=== PATIENT | female | born 1960 | race Hispanic/Latino ===

== ENCOUNTER 2017-10-21 13:12 | Outpatient (CLI) | payer BC | END 2017-10-21 13:13 | disposition home or self-care (01) | LOC: BICMAMMO 13:12 | PROVIDERS: ATTEND Family Medicine | DX: Z12.31 Encounter for screening mammogram for malignant neoplasm of breast (principal) | CPT/HCPCS: 77063; 77067 ==

== ENCOUNTER 2018-01-18 07:42 | Outpatient (CLI) | payer BC | END 2018-01-18 07:43 | disposition home or self-care (01) | LOC: BICULT 07:42 | PROVIDERS: ATTEND Family Medicine | DX: R10.84 Generalized abdominal pain (principal) | CPT/HCPCS: 76700 ==

== ENCOUNTER 2019-01-05 07:47 | Outpatient (CLI) | payer BC ==
--- NOTE | 2019-01-05 09:14 | ULT ---
ABDOMINAL ULTRASOUND COMPLETE: Date: 01/05/19 HISTORY: Abdominal pain. COMPARISON: 01/18/18. FINDINGS: Heterogeneous increased liver echogenicity, evidence for fatty change, with some associated focal fat ty sparing next to the gallbladder. Gallbladder demonstrates no evidence of gallstones, wall thickeni ng, edema, or pericholecystic fluid. Common bile duct within normal limits at 0.6 cm. No focal liver masses. Visualized pancreas, IVC, aorta, and spleen are unremarkable. The kidneys show no hydronephro sis. No abscess or abnormal fluid collection. IMPRESSION: Heterogeneous increased liver echogenicity, evidence for fatty change, with some associated very fatt y sparing, stable from prior study. POS: OFF
--- NOTE | 2019-01-05 09:27 | MMO ---
Bilateral MAMMO Bilat Diag [facility]. CLINICAL HISTORY: Patient is 58 years old and is seen for diagnostic exam and lump or thickening in the left breast. The patient has no family history of breast cancer. The patient has no personal history of cancer. The patient has a history of left Excisional Biopsy in 1994 - BENIGN and right Cyst Aspiration in 2000 - Benign. VIEWS: The views performed were: bilateral craniocaudal with tomosynthesis; bilateral mediolateral oblique with tomosynthesis; and bilateral mediolateral with tomosynthesis. FILMS COMPARED: The present examination has been compared to prior imaging studies performed at [facility] on 03/16/2013, 10/29/2015, 10/21/2017 and 01/05/2019. MAMMOGRAM FINDINGS: There are scattered fibroglandular densities. Finding 1: There are stable benign appearing calcifications seen in both breasts. Finding 2: There are multiple stable masses of varying size with microlobulated margins seen in the upper-outer region of the left breast. IMPRESSION: FINDING 1: STABLE CALCIFICATIONS IN BOTH BREASTS ARE BENIGN. FINDING 2: STABLE MASSES IN THE LEFT BREAST ARE PROBABLY BENIGN. FOLLOW-UP IN 6 MONTHS IS RECOMMENDED. SOLID AND CYSTIC MASSES. THE RESULTS OF THIS EXAM WERE SENT TO THE PATIENT. ACR BI-RADS Category 3 - Probably benign finding - short interval follow-up suggested. [facility] will notify the patient of the need for additional imaging services. MAMMOGRAPHY NOTE: 1. A negative mammogram report should not delay a biopsy if a dominant of clinically suspicious mass is present. 2. Approximately 10% to 15% of breast cancers are not detected by mammography. 3. Adenosis and dense breasts may obscure an underlying neoplasm. Reported by: JOE RICHTER MD Electonically Signed: [id number]
--- NOTE | 2019-01-05 11:45 | ULT ---
LEFT BREAST ULTRASOUND: HISTORY: The patient presents with a palpable finding in the left breast which has since resolved with no spec [facility] palpable finding at this time. COMPARISON: Bilateral diagnostic mammogram 01/05/2019. FINDINGS: At 3 o'clock, 2 cm from the nipple, there is a 0.9 x 1.1 x 0.9 cm diameter slightly hypoechoic slight ly microlobulated-appearing solid mass. In fairly close proximity to this mass there is a 2nd smalle r mass with microlobulated margins and slightly hypoechoic features the same as the above-mentioned m ass. This mass measures approximately 0.5 x 0.9 cm. In addition, there are 2 smaller circumscribed more hypoechoic masses noted at 3 o'clock, one measuring 0.4 cm x 0.5 cm, the second one measures mami roximately 0.5 x 0.7 cm. In the 12 o'clock position 4 cm from the nipple, there is a somewhat lobula elliott-appearing cyst which measures 0.7 x 1.1 x 0.4 cm in size. At 2 o'clock 4 cm from the nipple, the re is a circumscribed hypoechoic mass measuring 0.5 x 0.7 x 1.0 cm. At 11 o'clock 1 cm from the nipp le, there is a slightly septated cyst measuring 0.6 x 1.0 x 1.2 cm. Prior mammography indicated multiple overall stable-appearing nodules since least 2015. IMPRESSION: 1. Multiple solid and cystic nodules of varying size and varying echogenicity, the largest of which approximates 0.9 x 0.9 x 1.1 cm. This is at 3 o'clock 2 cm from the nipple. I favor these findings to be that of multiple degenerating fibroadenomas as well as multiple left breast cysts. 2. BIRADS category 3, probably benign findings. Followup left breast ultrasound and left breast luis gnostic mammogram in 6 months is recommended for further assessment with particular attenuation to th e largest finding in the left breast at 3 o'clock 2 cm from the nipple. Findings were discussed with the patient who is in agreement with proceeding to 6-month short-term owen rveillance. CODE T POS: OFF
== END 2019-01-05 07:48 | disposition home or self-care (01) ==
LOC: BICULT 07:47
PROVIDERS: ATTEND Family Medicine
DX: R10.84 Generalized abdominal pain (principal); N63.20 Unspecified lump in the left breast, unspecified quadrant; N63.21 Unspecified lump in the left breast, upper outer quadrant; K76.89 Other specified diseases of liver
CPT/HCPCS: 76700; 77066; G0279

== ENCOUNTER 2019-01-31 04:08 | Emergency (ER) | payer BC ==
[2019-01-31] MEDS ORDERED: hydrALAZINE 20 MG/ML VIAL ONE (04:20)
[2019-01-31] MEDS ORDERED: Ondansetron PF 4 MG/2 ML Vial ONE (04:25)
[2019-01-31 04:34] LABS: #Basophils 0.1 thou/uL (0.0-0.2); #Eosinphils 0.3 thou/uL (0.0-0.7); #Lymphocytes 3.2 thou/uL (1.20-3.40); #Monocytes 0.7 thou/uL (0.11-0.59); #Neutrophils 5.5 thou/uL (1.40-6.50); %Basophils 0.6 % (0.0-1.0); %Eosinophils 2.9 % (0.0-10.0); %Lymphocytes 32.9 % (21.0-51.0); %Monocytes 7.1 % (0.0-10.0); %Neutrophils 56.6 % (42.0-75.0); Mean Corpuscular HGB CONC 34.3 g/dL (32.0-36.0); Mean Corpuscular Hemoglobin 29.2 pg (27.0-31.0); Mean Platelet Volume 7.7 fL (7.4-10.4); Platelet Count 231 thou/uL (130-400); RBC Distribution Width 12.4 % (11.5-14.5); Red Blood Cell (RBC) Count 5.14 mill/uL (4.20-5.40); White Blood Cell (WBC) Count 9.6 thou/uL (4.8-10.8)
[2019-01-31 04:58] LABS: ALT (SGPT) 76 U/L (8-55); AST (SGOT) 60 U/L (5-34); Albumin 4.4 g/dL (3.5-5.0); Alkaline Phosphatase 149 U/L (40-150); Anion Gap 14 mmol/L (10-20); BUN (Urea Nitrogen) 9 mg/dL (9.8-20.1); Bilirubin, Total 1.3 mg/dL (0.2-1.2); Calc. Creatinine Clearance 0 mL/min (70-130); Calcium 10.1 mg/dL (7.8-10.44); Carbon Dioxide 26 mmol/L (22-29); Chloride 99 mmol/L (98-107); Estimated GFR-MDRD 74; Globulin 3.7 g/dL (2.4-3.5); Glucose 228 mg/dL (70-105); Potassium 3.5 mmol/L (3.5-5.1); Protein, Total 8.1 g/dL (6.0-8.3); Sodium 135 mmol/L (136-145)
== END 2019-01-31 05:31 | disposition home or self-care (01) ==
LOC: ERS 04:08
DX: R11.2 Nausea with vomiting, unspecified (principal); I10 Essential (primary) hypertension; F17.210 Nicotine dependence, cigarettes, uncomplicated; Z79.899 Other long term (current) drug therapy
CPT/HCPCS: 80053; 84484; 85025; 93005; 96374; 96375; J0360; J2405

== ENCOUNTER 2019-08-16 09:13 | Outpatient (CLI) | payer BC ==
--- NOTE | 2019-08-16 10:36 | MMO ---
Left Breast MAMMO Unilat Diag [facility]. CLINICAL HISTORY: Patient is 59 years old and is seen for diagnostic exam. The patient has a history of left Excisional Biopsy in 1994 - BENIGN and right Cyst Aspiration in 2000 - Benign. VIEWS: The views performed were: . FILMS COMPARED: The present examination has been compared to prior imaging studies performed at [facility] on 10/21/2017, 01/05/2019 and 08/16/2019. This study has been interpreted with the assistance of computer-aided detection. MAMMOGRAM FINDINGS: The breast is heterogeneously dense, which could obscure a lesion on mammography. There are multiple stable masses seen in the left breast. There are no suspicious masses, suspicious calcifications, or new areas of architectural distortion. IMPRESSION: THERE IS NO MAMMOGRAPHIC EVIDENCE OF MALIGNANCY. A ROUTINE FOLLOW-UP MAMMOGRAM IN 1 YEAR IS RECOMMENDED. THE RESULTS OF THIS EXAM WERE SENT TO THE PATIENT. ACR BI-RADS Category 2 - Benign finding MAMMOGRAPHY NOTE: 1. A negative mammogram report should not delay a biopsy if a dominant of clinically suspicious mass is present. 2. Approximately 10% to 15% of breast cancers are not detected by mammography. 3. Adenosis and dense breasts may obscure an underlying neoplasm. Reported by: LEILANI ARCE MD Electonically Signed: [id number]
--- NOTE | 2019-08-16 11:06 | ULT ---
LEFT BREAST ULTRASOUND: HISTORY: Followup of masses within the left breast. COMPARISON: Previous ultrasound of 01/05/2019, mammogram study of 08/16/2019 and 01/05/2019. FINDINGS: Multiple masses are again demonstrated within the left breast, the largest of which is in the 9-10 mm range which is a solid lesion at the 3 o'clock position 2 cm from the nipple. Other lesions are com plex cystic. These appear stable as compared to the prior exam. IMPRESSION: BIRADS category 2 - benign findings. POS: OFF
== END 2019-08-16 09:14 | disposition home or self-care (01) ==
LOC: BICMAMMO 09:13
PROVIDERS: ATTEND Family Medicine
DX: N63.20 Unspecified lump in the left breast, unspecified quadrant (principal)
CPT/HCPCS: G0279

== ENCOUNTER 2019-08-21 10:51 | Outpatient (CLI) | payer BC ==
--- NOTE | 2019-08-21 11:43 | ULT ---
RIGHT UPPER QUADRANT ULTRASOUND: Date: 08/21/2019 HISTORY: Right upper quadrant pain, abnormal labs. FINDINGS: The liver demonstrates increased echogenicity consistent with fatty infiltration. No focal mass or in trahepatic ductal dilatation is seen. The gallstones, gallbladder wall thickening, or pericholecystic fluid is seen. The pancreas and right kidney are normal. No free fluid is noted in Morison's pouch. The common duct measures 5.0 mm in diameter. IMPRESSION: 1. Fatty liver. 2. No evidence of cholelithiasis. POS: TPC
== END 2019-08-21 10:52 | disposition home or self-care (01) ==
LOC: BICULT 10:51
PROVIDERS: ATTEND Physician Assistant Medical
DX: Z12.11 Encounter for screening for malignant neoplasm of colon (principal); K21.9 Gastro-esophageal reflux disease without esophagitis; R10.11 Right upper quadrant pain; R94.5 Abnormal results of liver function studies; K76.0 Fatty (change of) liver, not elsewhere classified
CPT/HCPCS: 76705

== ENCOUNTER 2019-10-25 07:28 | Outpatient (CLI) | payer BC ==
--- NOTE | 2019-10-25 10:30 | NM ---
Exam: Nuclear medicine HIDA scan HISTORY: Right upper quadrant pain. TECHNIQUE: Patient is administered 4.9 mCi of technetium 99m mebrofenin intravenously. Gallbladder ej ection fraction is determined after the patient was administered 8 out of Ensure 1 hour after radiopharmaceutical injection FINDINGS: Appropriate uptake of the radiotracer by the liver. Excretion into the intrahepatic biliary system. Passage of radiotracer from the common bile duct into multiple small bowel loops. There is localization of the radiotracer in the gallbladder. Gallbladder ejection fraction: 61% IMPRESSION: 1. No scintigraphic evidence of acute cholecystitis 2. 61% gallbladder ejection fraction
== END 2019-10-25 07:29 | disposition home or self-care (01) ==
LOC: NM 07:28
PROVIDERS: ATTEND Internal Medicine Gastroenterology
DX: R10.11 Right upper quadrant pain (principal)
CPT/HCPCS: 78227; A9537

== ENCOUNTER 2020-07-30 08:51 | Outpatient (CLI) | payer BC ==
[2020-07-30] MEDS ORDERED: Iopamidol 370 76% 100 ML VIAL ONE (14:17)
== END 2020-07-30 08:52 | disposition home or self-care (01) ==
LOC: CT 08:51
PROVIDERS: ATTEND Internal Medicine Gastroenterology
DX: N93.9 Abnormal uterine and vaginal bleeding, unspecified (principal); D72.829 Elevated white blood cell count, unspecified; K92.1 Melena; K76.0 Fatty (change of) liver, not elsewhere classified
CPT/HCPCS: 74177; Q9967

== ENCOUNTER 2020-11-06 14:37 | Outpatient (CLI) | payer BC | END 2020-11-06 14:38 | disposition home or self-care (01) | LOC: BICRAD 14:37 | PROVIDERS: ATTEND Family Medicine | DX: J20.9 Acute bronchitis, unspecified (principal) | CPT/HCPCS: 71046 ==

== ENCOUNTER 2021-05-12 12:48 | Outpatient (CLI) | payer BC | END 2021-05-12 12:49 | disposition home or self-care (01) | LOC: BICMAMMO 12:48 | PROVIDERS: ATTEND Family Medicine | DX: Z12.31 Encounter for screening mammogram for malignant neoplasm of breast (principal); Z91.89 Other specified personal risk factors, not elsewhere classified | CPT/HCPCS: 77063; 77067 ==

== ENCOUNTER 2022-07-05 13:57 | Outpatient (CLI) | payer BC ==
[2022-07-05 14:59] LABS: #Basophils 0.1 10x3/uL (0.0-0.2); #Eosinphils 0.2 10x3/uL (0.0-0.5); #Monocytes 0.6 10x3/uL (0.0-1.1); #Neutrophils 9.1 10x3/uL (1.5-8.4); %Basophils 0.4 % (0.0-2.0); %Eosinophils 1.7 % (0.0-6.0); %Lymphocytes 19.6 % (18.0-47.0); %Monocytes 4.9 % (0.0-10.0); %Neutrophils 72.6 % (40.0-75.0); Hemoglobin 13.5 g/dL (12.0-15.5); Mean Corpuscular HGB CONC 33.8 g/dL (32.0-36.0); Mean Corpuscular Hemoglobin 28.4 pg (27.0-33.0); Mean Platelet Volume 9.8 fl (7.4-10.4); Platelet Count 311 10x3/uL (150-450); RBC Distribution Width 13.2 % (11.5-14.5); Red Blood Cell (RBC) Count 4.76 10x6/uL (3.90-5.03); White Blood Cell (WBC) Count 12.5 10x3/uL (3.5-10.5)
[2022-07-05 15:13] LABS: Anion Gap 17 mmol/L (10-20); BUN (Urea Nitrogen) 20 mg/dL (9.8-20.1); Calc. Creatinine Clearance 0 mL/min (70-130); Calcium 9.9 mg/dL (7.8-10.44); Carbon Dioxide 25 mmol/L (23-31); Chloride 103 mmol/L (98-107); Estimated GFR 84; Glucose 131 mg/dL (80-115); Potassium 3.7 mmol/L (3.5-5.1); Sodium 141 mmol/L (136-145)
== END 2022-07-05 13:58 | disposition home or self-care (01) ==
LOC: LABBT 13:57
PROVIDERS: ATTEND Surgery
DX: Z01.818 Encounter for other preprocedural examination (principal); M79.9 Soft tissue disorder, unspecified
CPT/HCPCS: 80048; 85025; 93005; 93010

== ENCOUNTER 2022-07-08 05:34 | Day surgery (SDC) | payer BC ==
[2022-07-07 13:34] VITALS: BMI 25.6
[2022-07-08] MEDS ORDERED: fentaNYL PF 100 MCG/2 ML SYRINGE ONE (06:27)
[2022-07-08] MEDS ORDERED: Dexmedetomidine 200 MCG/2 ML VIAL ONE (06:27)
[2022-07-08] MEDS ORDERED: Bupivacaine/Epinephrine 0.25% 30 ML VIAL ONE (07:00)
[2022-07-08] MEDS ORDERED: Famotidine/PF 20 mg/2ml Vial ONE (07:01)
[2022-07-08] MEDS ORDERED: Midazolam HCl 2 mg/2 ml Vial ONE (07:01)
[2022-07-08] MEDS ORDERED: CEFAZOLIN 2 GM VIAL ONE (07:28)
[2022-07-08] MEDS ORDERED: Sodium Chloride 0.9% 100 ML ONE (07:28)
[2022-07-08] MEDS ORDERED: NEOSTIGMINE 3 MG/3 ML SYR 3 MG/3 ML SYRINGE ONE (07:55)
[2022-07-08] MEDS ORDERED: Glycopyrrolate 0.2 MG/ML 5 ML SYRINGE ONE (07:55)
[2022-07-08] MEDS ORDERED: Ondansetron PF 4 MG/2 ML Vial ONE (07:55)
[2022-07-08] MEDS ORDERED: Rocuronium Bromide 10 MG/ML (10ML VIAL) ONE (07:55)
[2022-07-08] MEDS ORDERED: PROPOFOL 200 MG/20 ML VIAL ONE (07:55)
[2022-07-08] MEDS ORDERED: Lidocaine 1% PF 5 ML VIAL ONE (07:55)
[2022-07-08] MEDS ORDERED: Ketorolac Tromethamine 30 MG/ML VIAL ONE (07:55)
[2022-07-08] MEDS ORDERED: Dexamethasone 20 MG/5 ML VIAL ONE (07:55)
[2022-07-08] MEDS ORDERED: SUGAMMADEX SODIUM 200 MG/2 ML VIAL ONE (09:06)
== END 2022-07-08 11:03 | disposition home or self-care (01) ==
LOC: SDC 05:34
PROVIDERS: ATTEND Surgery
PROC: 0JB70ZZ Excision of Back Subcutaneous Tissue and Fascia, Open Approach (ICD-10-PCS; principal; 2022-07-08)
DX: M79.89 Other specified soft tissue disorders (principal); Z79.84 Long term (current) use of oral hypoglycemic drugs; Z79.899 Other long term (current) drug therapy
CPT/HCPCS: 88304; J1100; J1885; J2250; J2405; J2704; J3490; S0028

== ENCOUNTER 2023-03-31 11:29 | Outpatient (CLI) | payer BC | END 2023-03-31 11:30 | disposition home or self-care (01) | LOC: BICMAMMO 11:29 | PROVIDERS: ATTEND Family Medicine | DX: Z12.31 Encounter for screening mammogram for malignant neoplasm of breast (principal); Z91.89 Other specified personal risk factors, not elsewhere classified | CPT/HCPCS: 77063; 77067 ==

== ENCOUNTER 2023-12-14 06:57 | Outpatient (CLI) | payer BC | END 2023-12-14 06:58 | disposition home or self-care (01) | LOC: BICULT 06:57 | PROVIDERS: ATTEND Internal Medicine Gastroenterology | DX: K21.9 Gastro-esophageal reflux disease without esophagitis (principal); Z80.0 Family history of malignant neoplasm of digestive organs; Z86.010 Personal history of colon polyps | CPT/HCPCS: 76705 ==

== ENCOUNTER 2024-08-23 03:47 | Emergency (ER) | payer BC ==
[2024-08-23] MEDS ORDERED: Metoclopramide HCl 10 MG (2 mL) VIAL ONE (04:34)
[2024-08-23] MEDS ORDERED: diphenhydrAMINE 50 MG/ML VIAL ONE (04:34)
[2024-08-23] MEDS ORDERED: Ondansetron PF 4 MG/2 ML Vial ONE (04:35)
[2024-08-23 04:51] LABS: #Basophils 0.06 10x3/uL (0.0-0.2); %Basophils 0.7 % (0.0-1.0); %Eosinophils 1.9 % (0.0-10.0); %Lymphocytes 21.6 % (21.0-51.0); %Monocytes 5.7 % (0.0-10.0); %Neutrophils 69.2 % (42.0-75.0); Hematocrit 43.5 % (36.0-47.0); Hemoglobin 14.7 g/dL (12.0-16.0); Mean Corpuscular HGB CONC 33.8 g/dL (32.0-36.0); Mean Corpuscular Hemoglobin 27.2 pg (27.0-31.0); Mean Corpuscular Volume 80.4 fL (78.0-98.0); Mean Platelet Volume 9.2 fL (7.4-10.4); Platelet Count 241 10x3/uL (130-400); RBC Distribution Width 13.7 % (11.5-14.5); Red Blood Cell (RBC) Count 5.41 mill/uL (4.20-5.40)
[2024-08-23 05:26] LABS: ALT (SGPT) 52 U/L (Less than 34); AST (SGOT) 45 U/L (11-34); Albumin 3.7 g/dL (3.1-4.5); Alkaline Phosphatase 156 U/L (40-110); Anion Gap 15 mmol/L (10-20); BUN (Urea Nitrogen) 12 mg/dL (9.8-20.1); Bilirubin, Total 0.9 mg/dL (0.3-1.2); Calc. Creatinine Clearance 0 mL/min (70-130); Calcium 9.5 mg/dL (7.8-10.44); Carbon Dioxide 24 mmol/L (23-31); Chloride 100 mmol/L (98-107); Estimated GFR 98; Globulin 4.1 g/dL (2.4-3.5); Glucose 289 mg/dL (80-115); Magnesium 1.5 mg/dL (1.6-2.6); Potassium 3.2 mmol/L (3.5-5.1); Protein, Total 7.8 g/dL (5.8-8.1); Sodium 136 mmol/L (136-145)
[2024-08-23 05:43] LABS: Troponin I Less than 0.010 ng/mL (< 0.028)
[2024-08-23] MEDS ORDERED: Magnesium 2 GM/50 ML BAG (IN WATER) ONE (05:56)
[2024-08-23] MEDS ORDERED: Potassium Chloride 20 MEQ TAB ONE (06:18)
[2024-08-23 07:31] LABS: Troponin I Less than 0.010 ng/mL (< 0.028)
[2024-08-23] MEDS ORDERED: Ketorolac Tromethamine 30 MG (1 mL) VIAL ONE (08:10)
== END 2024-08-23 08:25 | disposition home or self-care (01) ==
LOC: ERS 03:47
DX: I10 Essential (primary) hypertension (principal); E11.9 Type 2 diabetes mellitus without complications; R51.9 Headache, unspecified; R42 Dizziness and giddiness; R79.89 Other specified abnormal findings of blood chemistry; F17.210 Nicotine dependence, cigarettes, uncomplicated; Z55.6 Problems related to health literacy
CPT/HCPCS: 36415; 70450; 71045; 80053; 83735; 84484; 85025; 93005; 96374; 96375; J1200; J1885; J2405; J2765; J3475